=== PATIENT | female | born 1990 | race Caucasian/White ===

== ENCOUNTER 2017-08-26 11:28 | Emergency (ER) | payer SELFPAY ==
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
[2017-08-26 13:07] VITALS: BP 118/58
[2017-08-26 13:11] LABS: APPEARANCE,URINE CLEAR (CLEAR); COLOR,URINE YELLOW (YELLOW); OCCULT BLOOD,URINE NEGATIVE (NEGATIVE); UROBILINOGEN URINE 0.2 Eu (0.2-1.0)
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
== END 2017-08-26 13:06 | disposition home or self-care (01) ==
LOC: ED 11:28
DX: M54.89 Other dorsalgia (principal); M54.2 Cervicalgia; R51 Headache; V89.2XXA Person injured in unspecified motor-vehicle accident, traffic, initial encounter; Y93.9 Activity, unspecified; Y92.9 Unspecified place or not applicable; Y99.9 Unspecified external cause status
CPT/HCPCS: 70450; 72100; 72125; 81002; 81025; 99284